=== PATIENT | female | born 1940 | race Two or more races ===

== ENCOUNTER 2019-11-03 17:03 | Inpatient (IN) | payer OTHER ==
[~2019-11-03] VITALS: Ht 167.6 cm; Wt 65.1 kg
[2019-11-03] MEDS ORDERED: SODIUM CHLORIDE 0.9% 500 ML IV ONE (17:51)
[2019-11-03 18:45] LABS: Eosinophils # (auto) 0.1 10 ^3/uL (0-0.8); Hematocrit 20.4 % (36.0-46.0); Mean Corpuscular Volume 63.6 fL (80.0-100.0); Monocytes # (auto) 0.5 10 ^3/uL (0-1.3); Nucleated Red Blood Cells % 0.6 %; Red Blood Cells 3.21 10^6/uL (4.0-5.20)
[2019-11-03 18:48] LABS: Basophils # (auto) 0 10 ^3/uL (0-0.2); Basophils % (auto) 0.6 % (0.0-2.0); Eosinophils % (auto) 1.7 % (0.0-7.0); Lymphocytes % (auto) 17.4 % (10.0-50.0); Mean Corpuscular Hemoglobin 17.4 pg (28.0-32.0); Mean Corpuscular Hgb Conc. 27.4 g/dL (32.0-36.0); Monocytes % (auto) 9.3 % (0.0-12.0); Neutrophils # (auto) 3.9 10 ^3/uL (1.6-8.6); Platelet Count (auto) 195 10^3/uL (140-450); White Blood Cell 5.5 10^3/uL (4.4-10.8)
[2019-11-03 18:49] LABS: Potassium 3.9 mmol/L (3.5-5.1)
[2019-11-03 18:53] LABS: Hemoglobin 5.6 g/dL (12.2-16.2); Red Cell Distribution Width 20.8 % (11.8-14.3)
[2019-11-03 18:58] LABS: Albumin 2.1 g/dL (3.4-5.0); BUN/Creatinine Ratio 33.3; Bilirubin, Total 1.1 mg/dL (0.2-1.0); Calcium 7.7 mg/dL (8.5-10.1); Total Protein 5.8 g/dL (6.4-8.2)
[2019-11-03] MEDS: SODIUM CHLORIDE 0.9% 1,000 ML IV SCH (22:55)
[2019-11-03] MEDS ORDERED: ALBUTEROL SULF 2.5 MG/0.5ML(0.5%) NEB SOLN NEB PRN (23:00)
[2019-11-03] MEDS ORDERED: DEXTROSE (50%) 50ML SYRG IV PRN (23:00)
[2019-11-03] MEDS ORDERED: ACETAMINOPHEN 325 MG TAB PO PRN (23:00)
[2019-11-03] MEDS ORDERED: HYDROcodone-ACET 5/325MG TAB PO PRN (23:00)
[2019-11-03] MEDS ORDERED: ONDANSETRON HCL 4 MG/2 ML VIAL IV PRN (23:00)
[2019-11-03] MEDS ORDERED: IPRATROPIUM BROM 0.5 MG/2.5ML INH SOL NEB PRN (23:00)
[2019-11-03 23:10] VITALS: BP 96/31
[2019-11-03] MEDS: PANTOPRAZOLE 40 MG/10 ML VIAL INJ IV SCH (23:21)
[2019-11-03 23:25] VITALS: BP 104/41
[2019-11-04] VITALS (14 sets, daily range): BP systolic 97–124; BP diastolic 34–78
[2019-11-04] MEDS: ACCU-CHEK COMFORT CURVE STRIP VI SCH ×6 (03:32→21:35)
[2019-11-04] MEDS: InsuLIN REG 1unit/0.01ml Soln (100units/ml) SC SCH ×6 (03:57→20:00)
[2019-11-04] MEDS ORDERED: TRAZ50TA2 PO (04:41)
[2019-11-04] MEDS ORDERED: ACET300T57 PO (04:41)
[2019-11-04] MEDS ORDERED: OMEP-411 PO (04:41)
[2019-11-04] MEDS ORDERED: [UNRECOGNIZED DRUG - CODE] PO (04:41)
[2019-11-04] MEDS ORDERED: RIVA10TA2 PO (04:41)
[2019-11-04] MEDS ORDERED: POTA10TA75 PO (04:41)
[2019-11-04] MEDS ORDERED: FLUO0.05 (04:41)
[2019-11-04] MEDS ORDERED: [UNRECOGNIZED DRUG - CODE] (04:41)
[2019-11-04 10:00] LABS: Eosinophils # (auto) 0.1 10 ^3/uL (0-0.8); Lymphocytes # (auto) 0.8 10 ^3/uL (0.4-5.4); Lymphocytes % (auto) 11.7 % (10.0-50.0); Monocytes # (auto) 0.6 10 ^3/uL (0-1.3)
[2019-11-04 10:03] LABS: Basophils # (auto) 0 10 ^3/uL (0-0.2); Basophils % (auto) 0.7 % (0.0-2.0); Eosinophils % (auto) 1.5 % (0.0-7.0); Hematocrit 35.9 % (36.0-46.0); Mean Corpuscular Hemoglobin 22.6 pg (28.0-32.0); Mean Corpuscular Hgb Conc. 30.6 g/dL (32.0-36.0); Mean Corpuscular Volume 73.9 fL (80.0-100.0); Monocytes % (auto) 7.7 % (0.0-12.0); Neutrophils # (auto) 5.6 10 ^3/uL (1.6-8.6); Neutrophils % (auto) 78.4 % (37.0-80.0); Nucleated Red Blood Cells % 1.7 %; Platelet Count (auto) 158 10^3/uL (140-450); Red Blood Cells 4.85 10^6/uL (4.0-5.20); White Blood Cell 7.2 10^3/uL (4.4-10.8)
[2019-11-04 10:09] LABS: Red Cell Distribution Width 27.3 % (11.8-14.3)
[2019-11-04 10:29] LABS: Calcium 7.7 mg/dL (8.5-10.1); Potassium 3.2 mmol/L (3.5-5.1)
[2019-11-04] MEDS ORDERED: HYDRX10T PO (10:53)
[2019-11-04] MEDS ORDERED: FLUT1SPR5 (10:53)
[2019-11-04] MEDS ORDERED: ALBUAER3 IN (10:53)
[2019-11-04] MEDS ORDERED: TIOT17SP IN (10:53)
[2019-11-04] MEDS ORDERED: ATOR40TA52 PO (10:54)
[2019-11-04] MEDS ORDERED: TOPI50TA53 PO (10:54)
[2019-11-04] MEDS: PANTOPRAZOLE 40 MG/10 ML VIAL INJ IV SCH ×2 (10:54→21:39)
[2019-11-04] MEDS ORDERED: FERR27TA2 PO (10:57)
[2019-11-04] MEDS ORDERED: BISO5TAB44 PO (10:57)
[2019-11-04] MEDS ORDERED: CRAN125T PO (10:57)
[2019-11-04] MEDS ORDERED: MULT-927 PO (10:59)
[2019-11-04] MEDS ORDERED: CYAN50008 SL (10:59)
[2019-11-04] MEDS ORDERED: CALC500C71 PO (10:59)
[2019-11-04] MEDS ORDERED: CHOL200021 PO (10:59)
[2019-11-04] MEDS: SODIUM CHLORIDE 0.9% 1,000 ML IV SCH (15:46)
[2019-11-04] MEDS: ATORVASTATIN 20 MG TAB PO SCH (18:06)
[2019-11-05] MEDS: InsuLIN REG 1unit/0.01ml Soln (100units/ml) SC SCH ×9 (00:37→23:41)
[2019-11-05] MEDS: ACCU-CHEK COMFORT CURVE STRIP VI SCH ×8 (00:39→23:42)
[2019-11-05 05:00] VITALS: BP 106/75
[2019-11-05 07:26] LABS: Basophils # (auto) 0.1 10 ^3/uL (0-0.2); Eosinophils # (auto) 0.1 10 ^3/uL (0-0.8); Hemoglobin 11.4 g/dL (12.2-16.2); Lymphocytes # (auto) 0.8 10 ^3/uL (0.4-5.4); Mean Corpuscular Volume 73.5 fL (80.0-100.0); Monocytes # (auto) 0.6 10 ^3/uL (0-1.3); Platelet Count (auto) 156 10^3/uL (140-450)
[2019-11-05 07:36] LABS: Basophils % (auto) 0.9 % (0.0-2.0); Eosinophils % (auto) 2.3 % (0.0-7.0); Hematocrit 37.2 % (36.0-46.0); Lymphocytes % (auto) 13.3 % (10.0-50.0); Mean Corpuscular Hemoglobin 22.5 pg (28.0-32.0); Mean Corpuscular Hgb Conc. 30.6 g/dL (32.0-36.0); Neutrophils # (auto) 4.3 10 ^3/uL (1.6-8.6); Neutrophils % (auto) 73.5 % (37.0-80.0); Red Blood Cells 5.06 10^6/uL (4.0-5.20); White Blood Cell 5.8 10^3/uL (4.4-10.8)
[2019-11-05] MEDS: SODIUM CHLORIDE 0.9% 1,000 ML IV SCH (07:39)
[2019-11-05 07:40] LABS: Red Cell Distribution Width 27.4 % (11.8-14.3)
[2019-11-05 07:46] LABS: INR 1.23 (0.9-1.15)
[2019-11-05 09:00] VITALS: BP 121/65
[2019-11-05] MEDS: PANTOPRAZOLE 40 MG/10 ML VIAL INJ IV SCH ×2 (09:59→21:26)
[2019-11-05] MEDS ORDERED: GOLYTELY 4L KIT PO ONE (10:00)
[2019-11-05] MEDS ORDERED: cefTRIAXone 1GM/50ML D5W 50 ML IV ONE (10:30)
[2019-11-05 11:51] LABS: Urine Bacteria MOD /hpf (None Seen); Urine Blood 2+ /uL (Negative); Urine Mucus FEW (None Seen); Urine Specific Gravity 1.022 (1.001-1.035); Urine WBC 65 /hpf (0 - 5)
[2019-11-05 13:00] VITALS: BP 116/62
[2019-11-05 17:00] VITALS: BP 138/70
[2019-11-05] MEDS: ATORVASTATIN 20 MG TAB PO SCH (17:31)
[2019-11-05 21:46] VITALS: BP 127/48
[2019-11-06] MEDS: SODIUM CHLORIDE 0.9% 1,000 ML IV SCH ×2 (01:01→17:26)
[2019-11-06] MEDS: InsuLIN REG 1unit/0.01ml Soln (100units/ml) SC SCH ×5 (03:41→20:00)
[2019-11-06] MEDS: ACCU-CHEK COMFORT CURVE STRIP VI SCH ×5 (03:41→20:00)
[2019-11-06 05:28] VITALS: BP 131/58
[2019-11-06 06:11] LABS: Basophils # (auto) 0.1 10 ^3/uL (0-0.2); Eosinophils # (auto) 0.1 10 ^3/uL (0-0.8); Hemoglobin 10.7 g/dL (12.2-16.2); Lymphocytes # (auto) 0.9 10 ^3/uL (0.4-5.4); Mean Corpuscular Hemoglobin 22.9 pg (28.0-32.0); Monocytes # (auto) 0.6 10 ^3/uL (0-1.3)
[2019-11-06 06:13] LABS: Basophils % (auto) 0.8 % (0.0-2.0); Eosinophils % (auto) 1.3 % (0.0-7.0); Hematocrit 34.1 % (36.0-46.0); Lymphocytes % (auto) 12.9 % (10.0-50.0); Mean Corpuscular Hgb Conc. 31.3 g/dL (32.0-36.0); Mean Corpuscular Volume 73.3 fL (80.0-100.0); Monocytes % (auto) 9.2 % (0.0-12.0); Neutrophils # (auto) 5.2 10 ^3/uL (1.6-8.6); Neutrophils % (auto) 75.8 % (37.0-80.0); Nucleated Red Blood Cells % 0.7 %; Platelet Count (auto) 157 10^3/uL (140-450); Red Blood Cells 4.65 10^6/uL (4.0-5.20); White Blood Cell 6.8 10^3/uL (4.4-10.8)
[2019-11-06 06:54] LABS: Red Cell Distribution Width 27.9 % (11.8-14.3)
[2019-11-06] MEDS ORDERED: cefTRIAXone 1GM/50ML D5W 50 ML IV SCH (09:00)
[2019-11-06] MEDS ORDERED: SODIUM CHLORIDE LOCK 10 ML ONE (09:15)
[2019-11-06] MEDS ORDERED: MIDAZOLAM HCL 5 MG/ML-1ML VIAL ONE (09:16)
[2019-11-06] MEDS ORDERED: diphenhdrAMINE HCL 50 MG/1 ML VL ONE (09:16)
[2019-11-06] MEDS ORDERED: fentaNYL CITRATE 100 MCG/2 ML VL ONE (09:16)
[2019-11-06] MEDS: PANTOPRAZOLE 40 MG/10 ML VIAL INJ IV SCH ×2 (09:34→21:42)
[2019-11-06 09:46] VITALS: BP 120/68
[2019-11-06 13:00] VITALS: BP 115/67
[2019-11-06 16:42] VITALS: BP 119/60
[2019-11-06] MEDS: ATORVASTATIN 20 MG TAB PO SCH (17:39)
[2019-11-06 18:33] VITALS: BP 119/60
[2019-11-07] MEDS: ACCU-CHEK COMFORT CURVE STRIP VI SCH ×2 (03:29)
[2019-11-07] MEDS: InsuLIN REG 1unit/0.01ml Soln (100units/ml) SC SCH ×2 (03:30)
== END 2019-11-07 04:08 | disposition short-term general hospital (02) | DRG 377 ==
LOC: ER 17:03 → EDBD 17:03 → TELE 17:04 → TELE-WESTW 23:35
PROVIDERS: ADMIT Hospitalist; ATTEND Family Medicine
PROC: 30233N1 Transfusion of Nonautologous Red Blood Cells into Peripheral Vein, Percutaneous Approach (ICD-10-PCS; principal; 2019-11-03)
DX: K62.5 Hemorrhage of anus and rectum (principal); L89.153 Pressure ulcer of sacral region, stage 3; D62 Acute posthemorrhagic anemia; N39.0 Urinary tract infection, site not specified; E11.9 Type 2 diabetes mellitus without complications; I11.0 Hypertensive heart disease with heart failure; I50.9 Heart failure, unspecified; Z86.73 Personal history of transient ischemic attack (TIA), and cerebral infarction without residual deficits; E78.5 Hyperlipidemia, unspecified; I48.91 Unspecified atrial fibrillation; Z90.49 Acquired absence of other specified parts of digestive tract; Z90.710 Acquired absence of both cervix and uterus; Z87.11 Personal history of peptic ulcer disease; Z98.49 Cataract extraction status, unspecified eye; Z90.11 Acquired absence of right breast and nipple; Z03.818 Encounter for observation for suspected exposure to other biological agents ruled out
CPT/HCPCS: 36415; 71045; 74176; 80048; 80053; 80061; 81001; 82962; 83036; 83540; 83550; 84484; 85025; 85610; 86850; 86900; 86901; 86920; 87081; 87086; 87088; 87186; 93005; 96360; C9113; G0378; J0696; J2250